=== PATIENT | female | born 1995 | race Caucasian/White ===

== ENCOUNTER 2017-07-28 16:16 | Emergency (ER) | payer OTHER ==
[~2017-07-28] VITALS: Ht 172.7 cm; Wt 59.1 kg
[2017-07-28 16:18] VITALS: BP 140/70; TEMP 98.7
[2017-07-28] MEDS ORDERED: SEROQUEL 2525 MG/TAB PO (16:40)
[2017-07-28 17:25] VITALS: PULSE 84
== END 2017-07-28 17:25 | disposition home or self-care (01) ==
LOC: COL.ER 16:16
DX: O26.891 Other specified pregnancy related conditions, first trimester (principal); R10.9 Unspecified abdominal pain; Z3A.00 Weeks of gestation of pregnancy not specified